=== PATIENT | female | born 2005 | race Caucasian/White ===

== ENCOUNTER 2024-06-05 09:39 | Outpatient (CLI) | payer BC, SELFPAY ==
--- OUTSIDE RECORDS SUMMARY | 2024-06-05 09:56 | XMS_ITS | Clinical Summary ---
Author Organization [facility] Address [address] Barbozan: Epic [place] [address] Care Team Providers Care Joint Setter Name Role Phone Cezar Alcala DO Primary Care Provider Unavaila ble Allergies No known active allergies Medications sertraline (ZOLOFT) 25 mg tabletIndicatio ns:Anxiety state Take 1 Tablet (25 mg) by mouth daily. 30 Tablet 5 Active Additional Information Patient taking differently:25 mg Oral DAILY,Was told to double it, Reported on 10/06/2021 Active Problems Problem Noted Date Diagnosed Date Allergic rhinitis due to pollen 10/22/2012 Resolved Problems Problem Noted Date Diagnosed Date Resolved Date Well child examination 10/05/201101/27 Contusion of finger of right hand 10/05/2011 07/08/2012 Closed fracture of head of radius 11/02/2009 02/22/2011 Immunizations Immunization Administration Dates Next Due (ADACEL/BOOSTRIX)(10 YR UP) TDAP VACCINE, 0.5ML, IM 08/30/2016 (INFANRIX)(6 WKS-6 YRS) DIPT HERIA, TETANUS TOXOIDS, AND ACCELLULAR PERTUSSIS VACCINE (DTAP), 0.5 ML IM 07/28/2008,10/23/2004,04/12/2004,02/06,2003 (M-M-R II/PRIORIX)(12 MO UP) MEASLES, MUMPS AND RUBELLA VIRUS VACCINE, 0.5 ML IM/SUBCUT 09/01/2008,10/23/2004 (MENACTRA)(9 MO-55 YR) MENIN GOCOCCAL POLYSACCHARIDE A, C, Y AND W-135 DIPTHERIA TOXOID CONJUGATE VACCINE, (PF), 0.5ML, IM 10/21/2020 (VARIVAX)(12 MOS UP)VARICELL A VIRUS VACCINE (PF) 0.5 ML, SUB CUT 09/01/2008,10/23/2004 HIB, Unspecified Formulation 04/12/2004,02/07/20 04,2003 Hepatitis B Vaccine 04/12/2004,02/07/2004,2003 Meningococcal A Conjugate Vaccine IM 10/12/2016 Poliovirus Vaccine Live Oral 07/28/2008, 04/12/2004,02/07/2004,11/02 Family History Medical History Relation Name Comments Healthy Father Ryan Healthy Mother Martita Healthy Sister Wendy 8yr Relation Name Status Comments Father Ryan Alive Mother Martita Alive Sister Wendy 8yr Alive Social History Tobacco Use Types Packs/Day Years Used Date Smoking Tobacco: Never Alcohol Use Standard Drinks/Week Comments No 0 (1 standard drink = 0.6 oz pur e alcohol) Adolescent Education Answer Date Record ed Getting School Help Needed Not on file 09/22 Comments No Sex and Gender Information Value Date Recorded Sex Assigned at Not on file 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 Gender Identity Not on file Sexual Orientation Not on file Last Filed Vital Signs Vital Sign Reading Time Taken Comments Blood Pressure 130/90 10/06/2021 9:52 AM CDT Pulse 90 10/06/2021 9:52 AM CDT Temperature 36.8 C (98.2 F) 07/21/2021 2:14 PM CDT Respiratory Rate 18 07/21/2021 2:14 PM CDT Oxygen Saturation 98% 10/06/2021 9:52 AM CDT Inhaled Oxygen Concentration - - Weight 77.3 kg (170 lb 6.4 oz) 10/06/2021 9:52 A M CDT Height 160 cm (5' 3 ) 10/06/2021 9:52 AM CDT Body Mass Index 30.19 10/06/2021 9:52 AM CDT Plan of Treatment Health Maintenance Due Date Last Done Comments CHLAMYDIA SCREENING (ANNUAL) 11-24 YEARS 07/16/2014 HPV VACCINES (1 - 3-dose series) 07/16/2018 INFLUENZA VACCINE (#1) 2023 07/21/2021 DTAP/TDAP/TD VACCINES (7 - T d or Tdap) 08/30/2026 08/30/2016, 07/28/2008, 10/23/2004, Additional history exists HEPATITIS B VACCINES Completed 04/12/2004, 02/07/2004, 2003 Medical Devices Implanted Type Area Demand Generation Manager Device Identifier Shelf Expiration Date Model / Serial / Lot .[id number] K-Wire Implanted:Qty: 1 on 10/07/2009 Wire Left: Elbow [employer] [facility] [id number] / NA / [id number] Description:.062 k-wire Insurance [employer] BLUE ACCESS/TRUE BLUE PPO [employer] BLUE ACCESS/TRUE BLUE PPO Care Teams Joint Setter Relationship Specialty Start Date End Date Cezar Alcala DO PCP - General Family Practice 02/12/12
[2024-06-05 10:17] LABS: Basophils Absolute Auto 0.1 K/mm3 (0.0-0.1); Eosinophils Absolute Auto 0.1 K/mm3 (0-0.3); Eosinophils Percent Auto 1.5 % (0-4.4); Hematocrit 41.1 % (37.0-47.0); Hemoglobin 13.2 g/dL (12.0-15.0); Immature Granulocyte Absolute 0.01 K/mm3 (0.00-0.031); Immature Granulocyte Percent A 0.1 % (0-0.5); Mean Corpuscular HGB Conc 32.1 g/dl (32-36); Mean Corpuscular Hemoglobin 26.2 pg (26-34); Mean Corpuscular Volume 81.7 fl (80-100); Mean Platelet Volume 12.6 fl (7.4-10.4); Monocytes Absolute Auto 0.7 K/mm3 (0.1-0.6); Monocytes Percent Auto 9.1 % (2.6-8.5); Neutrophils Absolute Auto 4.7 K/mm3 (1.3-6.7); Neutrophils Percent Auto 58.3 % (45.5-73.1); Platelet Count Result 288 k/mm3 (150-375); Red Blood Count 5.03 M/mm3 (4.2-5.4); Red Cell Distribution Width 14.5 % (11.5-14.5)
[2024-06-05 10:29] LABS: Anion Gap 10 mmol/L (4-12); Blood Urea Nitrogen 12 mg/dL (7-17); Calcium 9.7 mg/dL (8.4-10.2); Carbon Dioxide 28 mmol/L (22-30); Chloride 102 mmol/L (98-107); Estimated Glomerular Filt Rate > 60; Glucose 85 mg/dL (65-110); Potassium 4.2 mmol/L (3.4-5.0); Sodium 140 mmol/L (137-145)
== END 2024-06-05 09:40 | disposition home or self-care (01) ==
PROVIDERS: PCP Physician Assistant Medical; Visit Provider Physician Assistant Medical
DX: R63.5 Abnormal weight gain (principal)
CPT/HCPCS: 36415; 80048; 84443; 85025

== ENCOUNTER 2024-07-08 12:40 | Outpatient (CLI) | payer BC, SELFPAY ==
--- NOTE | ~2024-07-08 | US_ITS ---
Pelvic ultrasound. Clinical History: Excessive and frequent menstruation Technique: Realtime transvaginal scanning of the pelvis was performed. Color flow Doppler and Doppler spectral analysis were performed. Findings: The uterus is retroverted.. The endometrial stripe has a thickness of 4 mm. No focal mass is identified. The right ovary measures 1.8 x 3.9 x 2.4 cm. No significant right ovarian or adnexal mass is seen. The left ovary measures 2.6 x 3.5 x 2.4 cm. Simple left ovarian cyst measures 2.2 cm. There is trace free fluid in the cul de sac. Impression: Trace free fluid. No other significant abnormality. Reviewed, dictated and finalized at location . Impression: Trace free fluid. No other significant abnormality.
== END 2024-07-08 12:41 | disposition home or self-care (01) ==
LOC: MICIMG 12:40
PROVIDERS: PCP Family Medicine; Visit Provider Physician Assistant Medical
DX: N92.1 Excessive and frequent menstruation with irregular cycle (principal)
CPT/HCPCS: 76830

== ENCOUNTER 2024-08-18 10:35 | Outpatient (CLI) | payer BC, SELFPAY ==
--- OUTSIDE RECORDS SUMMARY | 2024-08-18 11:43 | XMS_ITS | Encounter Summary ---
Author Organization [facility] Address [address] [place] [address] Care Team Providers Care Microelectronics Technician Name Role Phone None, Physician Primary Care Provider Unavailabl e Encounter Details Date Type Department Care Team ([facility] Contact Info) Description 08/07/2024 Results Follow-Up [facility] - AUGER MACHINE OFFBEARER [address] [place] [address] Shanda Mueller MD [address] [place] [address] Social History Tobacco Use Types Packs/Day Years Used Date Smoking Tobacco: Never Smokeless Tobacco: Never Alcohol Use Standard Drinks/Week Comments Never 0 (1 standard drink = 0.6 oz pur e alcohol) PHQ-2 Answer Date Recorded Patient Health Questionnaire-2 Score 0 08/04/2024 Comments No Sex and Gender Information Value Date Recorded Sex Assigned at Not on file Legal Sex Female 11:45 AM CDT Gender Identity Not on file Sexual Orientation Not on file documented as of this encounter Plan of Treatment Upcoming Encounters Date Type Department Care Team ([facility] Contact Info) Description 09/08/2024 4:40 PM CDT Procedure visit [facility] - AUGER MACHINE OFFBEARER [address] [place] [address] Shanda Mueller MD [address] [place] [address] documented as of this encounter Visit Diagnoses Not on filedocumented in this encounter Care Teams Microelectronics Technician Relationship Specialty Start Date End Date None, Physician [facility] [place] [address] PCP - General 08/04/24 documented as of this encounter
--- OUTSIDE RECORDS SUMMARY | 2024-08-18 11:43 | XMS_ITS | Clinical Summary ---
Author Organization [facility] Address [address] [place] [address] Care Team Providers Care Foundry Superintendant Name Role Phone None, Physician Primary Care Provider Unavailabl e Source Comments [facility],non-owned Affiliates and Associated Physician Practices is amultiple site organization consisting of ambulatory clinics and hospital sitesin [place], [place], [place] and [place]. This disclosure is being madepursuant to the Care Everywhere program and may not contain all information available regarding this patient. Last updated 17.[facility] Allergies No known active allergies Medications * Be aware that medications may not be up to date on this document. Alwaysverify current medications with the patient. sertraline (Zoloft) 100 MG tablet Take 1 (one) tablet by mouth once daily 5 Active Tri-Sprintec tablet Take 1 (one) tablet by mouth once daily 5 Active phentermine (Adipex-P) 37.5 MG tablet TAKE 1 TABLET BY MOUTH ONCE DAILY TAKE 30 MINUTES BEFORE OR 1-2 HOURS AFTFER BREAKFAST 5 Active topiramate (Topamax) 25 MG tablet Take 1 (one) tablet by mouth 3 times daily 5 08/05/19 25 Discontinu ed(List Clean-Up) Encounters Date Type Department Care Team Description 08/07/2024 Results Follow-Up [facility] - COMMUNICATIONS SUPERVISOR [address] [phone] Shanda Mueller MD 08/05/2024 Telephone [facility] - COMMUNICATIONS SUPERVISOR [address] [phone] Shanda Mueller MD IUD 08/04/2024 11:20 AM CDT Office Visit [facility] - COMMUNICATIONS SUPERVISOR [address] [phone] Shanda Mueller MD Abnormal uterine bleeding (AUB) (Primary Dx); Screening for cervical cancer; HPV vaccine counseling 08/03/2024 Telephone [facility] - COMMUNICATIONS SUPERVISOR [address] [facility] [address] [place] [address] Shanda Mueller MD Appointment from Last 3 Months Immunizations Immunization Administration Dates Next Due DTAP/HEP B/IPV 04/12/2004,02/07/2004,2003 DTaP VACCINE IM (6wk-6yrs) 07/28/2008,10/23/2004 HIB-PRP-OMP 3 DOSE 04/12/2004,02/07/2004, 004 INFLUENZA VACCINE, QUADR. (F LUZONE; FLULAVAL; FLUARIX; AFLURIA QUADRIVALENT; 6MO+), 0.5 ML (IIV4) 12/20/2022 INFLUENZA VACCINE, TRIV. (FL UZONE; FLULAVAL; FLUARIX; AFLURIA TRIVALENT; 6MO+), 0.5 ML (IIV3) 12/10/2023 MENINGOCOCCAL ACWY (MCV4P) VAC IM 10/21/2020 MENINGOCOCCAL ACWY MENVEO 10/12/2016 MMR VACCINE 09/01/2008,10/23/2004 POLIO IPV 07/28/2008 TDAP (7yrs+) 08/30/2016 TDAP, HISTORIC VACCINE 01/31/2023 VARICELLA 09/01/2008,10/23/2004 Family History Medical History Relation Name Comments Cancer - Colon Maternal Aunt Hypertension Mother Cancer - Lung Paternal Grandfather Relation Name Status Comments Maternal Aunt Mother Paternal Grandfather Social History Tobacco Use Types Packs/Day Years [...] Sign Reading Time Taken Comments Blood Pressure 131/73 08/04/2024 11:14 AM CDT Pulse 70 08/04/2024 11:14 AM CDT Temperature - - Respiratory Rate - - Oxygen Saturation - - Inhaled Oxygen Concentration - - Weight 89.4 kg (197 lb) 08/04/2024 11:14 AM CDT Height 160 cm (5' 3) 08/04/2024 11:14 AM CDT Body Mass Index 34.9 08/04/2024 11:14 AM CDT Plan of Treatment Upcoming Encounters Date Type Department Care Team (Late st Contact Info) Description 09/08/2024 4:40 PM CDT Procedure visit [facility] - COMMUNICATIONS SUPERVISOR [address] [phone] Shanda Mueller MD [address] [place] [address] Health Maintenance Due Date Last Done Comments HIV SCREENING 07/16/2018 HPV VACCINE (1 - 3-dose series) 07/16/2018 MENINGOCOCCAL (Group B) VACCINE SHARED DECISION-MAKING (1 of 2 - Standard) 2019 HEPATITIS C SCREENING 07/12/2021 COVID-19 VACCINE ( season) 2023 CHLAMYDIA/GONORRHEA SCREENING 08/04/2025 08/04/2024 PAP SMEAR 08/05/2027 08/04/2024 DTAP/TDAP/TD VACCINES (8 - Td or Tdap) 01/31/2033 01/31/2023, 08/30/2016, 07/28/2008, Additional history exists ZOSTER VACCINE (1 of 2) 07/16/2053 HEPATITIS B VACCINE Completed 04/12/2004, 02/07/2004, 2003 HIB VACCINE Aged Out 04/12/2004, 08/2003, 2003 No longer eligible based on patient's age to complete this topic MENINGOCOCCAL GROUPS A/C/Y/W VACCINE Completed 10/21/2020, 10/12/2016 INFLUENZA VACCINE Completed 12/10/2023, 12/20/2022 DEPRESSION SCREENING Completed 08/04/2024 PNEUMOCOCCAL VACCINE Aged Out No long er eligible based on patient's age to complete this topic Procedures Procedure Name Priority Date/Time Associated Diagnosis Comments PAP CERVICAL CANCER SCREEN CT/NG/TV APT Routine 08/04/2024 11:32 AM CDT Screening for cervical cancer from Last 3 Months Results * PAP CERVICAL CANCER SCREEN CT/NG/TV APT (08/04/2024 11:32 AM CDT) Age Gdln ACOG Testing 21-29 [facility] ACCOUNT BILL Comment: Performed at: 02 - [facility] [address], [place] [id number] Indoor Sports Centre Manager: Yeimi Blackmon MD, Phone: [phone] Performed at: - [facility] [address], [place] [id number] Indoor Sports Centre Manager: Yeimi Blackmon MD, Phone: [phone] Diagnosis Comment [facility] ACCOUNT BILL Comment:NEGATIVE FOR INTRAEP ITHELIAL LESION OR MALIGNANCY. Specimen Adequacy Comment [facility] ACCOUNT BILL Comment: Satisfactory for evaluation. Endocervical and/or squamous metaplastic cells (endocervical component) are present. Clinician Provided ICD10 Comment [facility] ACCOUNT BILL Comment:Z12.4 Performed by Comment [facility] ACCOUNT BILL Comment:Bartolo Gutierrez , Assistant Center Manager (ASCP) Comment . [facility] ACCOUNT BILL Note Comment [facility] ACCOUNT BILL Comment: The Pap smear is a screening test designed to aid in the detection of premalignant and malignant conditions of the uterine cervix. It is not a diagnostic procedure and should not be used as the sole means of detecting cervical cancer. Both false-positive and false-negative reports do occur. IGLBP CPT Code Automation Comment [facility] ACCOUNT BILL Comment: This liquid based ThinPrep(R) pap test was screened with the use of an image guided system. Note Comment [facility] ACCOUNT BILL Comment: The HPV DNA reflex criteria were not met with this specimen result therefore, no HPV testing was performed. Chlamydia trachomatis LENIN Negative Negative [facility] ACCOUNT BILL GC LENIN Negative Negative [facility] ACCOUNT BILL Trichomonas vaginalis by LENIN Negative Negative [facility] ACCOUNT BILL PART OF UTERINE CERVIX / Unknown 08/04/2024 11:32 AM CDT 08/04/2024 Comment:Cervix Release to pa t Narrative [facility] ACCOUNT BILL - 08/06/2024 1:10 PM CDT Performed at: - [facility] [address] [place] [id number] Indoor Sports Centre Manager: Yeimi Blackmon MD, Phone: [phone] Specimen Comment: [id number] Specimen Comment: Source.............Cervix Specimen Comment: No. of containers..01 ThinPrep Vial us Shanda Mueller MD LAB - PATHOLOGY/CYTOLOGY CHENG SLADE Final Result [facility] ACCOUNT BILL [address] [place] [address] from Last 3 Months Insurance ANTH Care Teams Foundry Superintendant Relationship Specialty Start Date End Date None, Physician [address] [place] [address] PCP - General 08/04/24
== END 2024-08-18 10:36 | disposition home or self-care (01) ==
LOC: ANHAUDIO 10:36
PROVIDERS: PCP Family Medicine; Visit Provider Otolaryngology
DX: H90.41 Sensorineural hearing loss, unilateral, right ear, with unrestricted hearing on the contralateral side (principal)
CPT/HCPCS: 92557; 92567

== ENCOUNTER 2024-09-18 15:44 | Outpatient (CLI) | payer BC, SELFPAY ==
--- NOTE | ~2024-09-18 | MR_ITS ---
MRI of the brain Clinical History: Sensorineural hearing loss Technique: Axial and sagittal T1-weighted images were acquired. These were followed by axial T2-weigh rubén, diffusion weighted, gradient, and FLAIR images. Thin cut axial and coronal T1-weighted and T2-we ighted images were acquired through the internal auditory canals. Following intravenous administratio n of 18 cc MultiHance gadolinium, T1-weighted fat-sat imaging was performed through the brain in the axial and coronal planes. Thin cut T1-weighted postcontrast images were performed through the interna l auditory canals in the axial and coronal planes. Findings: No abnormal signal seen in the brain parenchyma. No acute infarct, intracranial hemorrhage, or mass lesion. Ventricles and subarachnoid spaces are unremarkable. Orbits are unremarkable. Paranasal sinuses and m astoid air cells are clear. Major visualized are intact. Sagittal midline structures are intact. No abnormal mass lesion seen at the CP angle regions or internal auditory canals. No abnormal postcontrast enhancement identified. IMPRESSION: Unremarkable exam. Reviewed, dictated and finalized at location M. IMPRESSION: Unremarkable exam.
--- OUTSIDE RECORDS SUMMARY | 2024-09-18 15:48 | XMS_ITS | Encounter Summary ---
Author Organization [facility] Address [address] [place] [address] Care Team Providers Care Licensing Engineer Name Role Phone None, Physician Primary Care Provider Unavailabl e Encounter Details Date Type Department Care Team (Late st Contact Info) Description 08/07/2024 Results Follow-Up [facility] - PERMIT AGENT [address] [place] [address] Shanda Mueller MD [address] [place] [address] Social History Tobacco Use Types [...] as of this encounter Plan of Treatment Not on file documented as of this encounter Visit Diagnoses Not on filedocumented in this encounter Care Teams Licensing Engineer Relationship Specialty Start Date End Date None, Physician [address] [place] [address] PCP - General 08/04/24 documented as of this encounter
--- OUTSIDE RECORDS SUMMARY | 2024-09-18 15:48 | XMS_ITS | Clinical Summary ---
Author Organization [facility] Address [address] 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 SOFTWARE EDUCATOR Gender Identity Not on file Sexual Orientation [...] A M CDT Height 160 cm (5' 3) 10/06/2021 9:52 AM CDT Body Mass Index 30.19 10/06/2021 9:52 AM CDT Plan of Treatment Health Maintenance Due Date Last Done Comments CHLAMYDIA SCREENING (ANNUAL) 24 YEARS 07/16/2014 HPV VACCINES (1 - 3-dose series) 07/16/2018 CERVICAL CANCER SCREENING 07/16/2024 HPV/Cotest (21-29) 07/16/2024 PAP SMEAR 07/16/2024 INFLUENZA VACCINE (#1) 2024 07/21/2021 DTAP/TDAP/TD VACCINES (7 - T d or Tdap) 08/30/2026 08/30/2016, 07/28/2008, 10/23/2004, Additional history exists HEPATITIS B VACCINES Completed 04/12/2004, 02/07/2004, 2003 Medical Devices Implanted Type Area Neon Technician Device Identifier Shelf Expiration Date Model / Serial / Lot .[id number] K-Wire Implanted:Qty: 1 on 10/07/2009 Wire Left: Elbow [facility] [id number] / NA / [id number] Description:.062 k-wire Insurance [employer] BLUE ACCESS/TRUE BLUE PPO [employer] BLUE ACCESS/TRUE BLUE PPO Care Teams Quality Assurance Supervisor Relationship Specialty Start Date End Date Cezar Alcala DO PCP - General Family Practice 02/12/12
--- OUTSIDE RECORDS SUMMARY | 2024-09-18 15:48 | XMS_ITS | Clinical Summary ---
Author Organization [facility] Address [address] [place] [address] Care Team Providers Care Pan Washer Hand Name Role Phone None, Physician Primary Care Provider Unavailabl e Source Comments [facility],non-owned Affiliates and Associated Physician Practices is amultiple site organization consisting of ambulatory clinics and hospital sitesin [place], [place], [place] and [place]. This disclosure is being madepursuant to the Care Everywhere program and may not contain all information available regarding this patient. Last updated 17.[facility] Allergies No known active allergies Medications * [...] OR 1-2 HOURS AFTFER BREAKFAST 5 Active albuterol HFA (Proventil; Ventolin; Proair) 108 (90 Base) MCG/ACT inhaler INHALE 2 PUFFS BY MOUTH EVERY 4 HOURS NEEDED FOR SHORTNESS OF BREATH OR WHEEZING 5 Active Tri-Sprintec tablet Take 1 (one) tablet by mouth once daily 5 09/09/19 25 Discontinu ed(List Clean-Up) Norgestim-Eth Estrad Triphasic (NORGESTIMATE-E THINYL ESTRADIOL PO) Take 1 tablet by mouth 5 09/09/19 25 Discontinu ed(List Clean-Up) medroxyPROGESTE Sami (Provera) 10 MG tablet Take 1 (one) tablet by mouth 5 09/09/19 25 Discontinu ed(List Clean-Up) QUEtiapine (SEROquel) 50 MG tablet Take 1 (one) tablet by mouth 4 09/09/19 Discontinu ed(List Clean-Up) Hospital, Clinic, or Other Facility Administered Medication Ordered Dose Route Frequency Start Date End Date Status levonorgestrel (Mirena) IUD 1 deviceIndications:Contracep tive Therapy 1 device IU ONCE 09/08/2024 09/08/2024 Ended Encounters Date Type Department Care Team Description 09/08/2024 4:40 PM CDT Procedure visit [facility] - SPOOL SORTER [facility] [place] [phone] Shanda Mueller MD Encounter for insertion of Mirena IUD 08/26/2024 Telephone [facility] - SPOOL SORTER [facility] [place] [phone] Shanda Mueller MD Question 08/07/2024 Results Follow-Up [facility] - SPOOL SORTER [facility] [place] [address] Shanda Mueller MD 08/05/2024 Telephone [facility] SPOOL SORTER [facility] [place] [address] Shanda Mueller MD IUD 08/04/2024 11:20 AM CDT Office Visit [facility] SPOOL SORTER [facility] [place] [address] Shanda Mueller MD Abnormal uterine bleeding (AUB) (Primary Dx); Screening for cervical cancer; HPV vaccine counseling 08/03/2024 Telephone [facility] - SPOOL SORTER [address] [facility] [address] [place] [address] Shanda Mueller MD Appointment from Last 3 Months Immunizations Immunization Administration Dates Next Due DTAP/HEP B/IPV 04/12/2004,02/07/2004,2003 DTaP VACCINE IM (6wk-6yrs) 07/28/2008,,04/12/2004,02/06,2003 HEP B VACCINE, ADULT 3 DOSE 04/12/2004, 4,2003 HIB VACCINE 04/12/2004,02/07/2004,2003 HIB-PRP-OMP 3 DOSE 04/12/2004,02/07/2004, 004 INFLUENZA VACCINE, QUADR. (F LUZONE; FLULAVAL; FLUARIX; AFLURIA QUADRIVALENT; 6MO+), 0.5 ML (IIV4) 12/20/2022 INFLUENZA VACCINE, TRIV. (FL UZONE; FLULAVAL; FLUARIX; AFLURIA TRIVALENT; 6MO+), 0.5 ML (IIV3) 12/10/2023 MENINGOCOCCAL ACWY (MCV4P) VAC IM 10/21/2020 MENINGOCOCCAL ACWY MENVEO 10/12/2016 MMR VACCINE 09/01/2008,10/23/2004 POLIO IPV 07/28/2008 POLIO OPV 07/28/2008, 5,02/07/2004,11/02 TDAP (7yrs+) 08/30/2016 TDAP, HISTORIC VACCINE 01/31/2023 [...] Date Recorded Patient Health Questionnaire-2 Score 0 09/08/2024 Comments No Sex and Gender Information Value Date Recorded Sex Assigned at Not on file Legal Sex Female 11:45 AM CDT Gender Identity Not on file Sexual Orientation Not on file Last Filed Vital Signs Vital Sign Reading Time Taken Comments Blood Pressure 122/72 09/08/2024 4:39 PM CDT Pulse 96 09/08/2024 4:39 PM CDT Temperature - - Respiratory Rate - - Oxygen Saturation - - Inhaled Oxygen Concentration - - Weight 89.4 kg (197 lb) 09/08/2024 4:39 PM CDT Height 160 cm (5' 3) 09/08/2024 4:39 PM CDT Body Mass Index 34.9 09/08/2024 4:39 PM CDT Plan of Treatment Health Maintenance Due Date Last Done Comments HIV SCREENING 07/16/2018 HPV VACCINE (1 - 3-dose series) 07/16/2018 MENINGOCOCCAL (Group B) VACCINE SHARED DECISION-MAKING (1 of 2 - Standard) 2019 HEPATITIS C SCREENING 07/12/2021 COVID-19 VACCINE ( - season) 2023 INFLUENZA VACCINE (#1) 2024 12/10/2023, 2022 CHLAMYDIA/GONORRHEA SCREENING 08/04/2025 08/04/2024 PAP SMEAR 08/05/2027 08/04/2024 DTAP/TDAP/TD VACCINES (8 - Td or Tdap) 01/31/2033 01/31/2023, 08/30/2016, 07/28/2008, Additional history exists ZOSTER VACCINE (1 of 2) 07/16/2053 HEPATITIS B VACCINE Completed 04/12/2004, 04/12/2004, 02/07/2004, Additional history exists HIB VACCINE Aged Out 04/12/2004, 11/2004, 02/07/2004, Additional history exists No longer eligible based on patient's age to complete this topic MENINGOCOCCAL GROUPS A/C/Y/W VACCINE Completed 10/21/2020, 10/12/2016 DEPRESSION SCREENING Completed 08/04/2024 PNEUMOCOCCAL VACCINE Aged Out No long er eligible based on patient's age to complete this topic Procedures Procedure Name Priority Date/Time Associated Diagnosis Comments HCG URINE QUALITATIVE - POINT OF CARE (AMB) Routine 09/08/2024 5:11 PM CDT Encounter for insertion of Mirena IUD PAP CERVICAL CANCER SCREEN CT/NG/TV APT Routine 08/04/2024 11:32 AM CDT Screening for cervical cancer from Last 3 Months Results * HCG URINE QUALITATIVE - POINT OF CARE (AMB) (09/08/2024 5:11 PM CDT) HCG Qual Urine Negative Negative QC Verified Yes Yes Urine URINE / Unknown 09/08/2024 5 :11 PM CDT Shanda Mueller MD LAB - POINT OF CARE ORDERABLE S Final Result * PAP CERVICAL CANCER SCREEN CT/NG/TV APT (08/04/2024 11:32 AM CDT) Age Gdln ACOG Testing 21-29 [facility] ACCOUNT BILL Comment: Performed at: 02 - [facility] [address], [place] [id number] Stummel Selector: Yeimi Blackmon MD, Phone: [phone] Performed at: - [facility] [address], [place] [id number] [place]ummel Selector: Yeimi Blackmon MD, Phone: [phone] Diagnosis Comment [facility] ACCOUNT BILL Comment:NEGATIVE FOR INTRAEP ITHELIAL LESION OR MALIGNANCY. Specimen Adequacy Comment [facility] ACCOUNT BILL Comment: Satisfactory for evaluation. Endocervical and/or squamous metaplastic cells (endocervical component) are present. Clinician Provided ICD10 Comment [facility] ACCOUNT BILL Comment:Z12.4 Performed by Comment [facility] ACCOUNT BILL Comment:Bartolo Gutierrez , Claim Specialist (ASCP) Comment . [facility] ACCOUNT BILL Note [...] - 08/06/2024 1:10 PM CDT Performed at: 01 - [facility] [address] [place] [id number] Stummel Selector: Yeimi Blackmon MD, Phone: [phone] Specimen Comment: [id number] Specimen Comment: Source.............Cervix Specimen Comment: No. of containers..01 ThinPrep Vial Shanda Mueller MD LAB - PATHOLOGY/CYTOLOGY CHENG SLADE Final Result [facility] ACCOUNT BILL [address] [place] [address] from Last 3 Months Insurance Care Teams Pan Washer Hand Relationship Specialty Start Date End Date None, Physician [address] [place] [address] PCP - General 08/04/24
== END 2024-09-18 15:45 | disposition home or self-care (01) ==
PROVIDERS: PCP Family Medicine; Visit Provider Otolaryngology
DX: H91.8X3 Other specified hearing loss, bilateral (principal)
CPT/HCPCS: 70553; A9577

== ENCOUNTER 2024-10-30 11:00 | Outpatient (RCR) | payer BC, SELFPAY | END 2024-10-30 23:59 | disposition home or self-care (01) | LOC: ANHAUDIO 11:00 | PROVIDERS: PCP Family Medicine; Visit Provider Family Medicine | DX: Z46.1 Encounter for fitting and adjustment of hearing aid (principal) | CPT/HCPCS: 99199; V5241; V5257 ==